=== PATIENT | male | born 1990 | race Two or more races ===

== ENCOUNTER 2018-04-18 05:38 | Inpatient (IN) | payer MEDICAID, OTHER ==
[2018-04-18] MEDS ORDERED: PROMETHAZINE HCL 25 MG/ML INJ IVP ONE ×2 (05:45→06:56)
[2018-04-18] MEDS ORDERED: NS 1,000 ML IV ONE ×2 (05:45)
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
[2018-04-18 05:54] LABS: PLATELET COUNT 359 10^3/uL (150-400)
[2018-04-18 06:02] LABS: INR 1.04 (0.83-1.16); PROTIME(PATIENT) 13.8 SEC (12.0-15.0)
[2018-04-18] MEDS ORDERED: ONDANSETRON 4 MG/2 ML VIAL IVP ONE (06:03)
[2018-04-18] MEDS ORDERED: PROMETHAZINE HCL 25 MG/ML INJ ONE (06:49)
[2018-04-18] MEDS ORDERED: LORazepam 2 MG/ML INJ IVP ONE (07:42)
[2018-04-18] MEDS ORDERED: ONDANSETRON DISINTEGRATING 4 MG TAB PO PRN (10:21)
[2018-04-18] MEDS ORDERED: ACETAMINOPHEN 325 MG TAB PO PRN (10:21)
[2018-04-18] MEDS ORDERED: PROMETHAZINE HCL 25 MG TAB PO PRN (10:25)
[2018-04-18] MEDS ORDERED: oxyCODONE IR 15 MG TAB PO PRN (10:25)
[2018-04-18] MEDS: PROMETHAZINE HCL 25 MG/ML INJ IVP PRN ×3 (11:26→23:11)
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
[2018-04-18] MEDS: HYDROmorphONE/DILAUDID 1 MG/ML INJ IVP PRN ×3 (11:27→23:09)
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
[2018-04-18] MEDS: ONDANSETRON 4 MG/2 ML VIAL IVP PRN ×2 (14:05→19:54)
[2018-04-18] MEDS: NS 1,000 ML IV SCH (14:06)
[2018-04-18] MEDS: NILOTINIB HCL 150 MG PO SCH (23:02)
[2018-04-19] MEDS: ONDANSETRON 4 MG/2 ML VIAL IVP PRN ×4 (00:54→20:43)
[2018-04-19] MEDS: LORazepam 2 MG/ML INJ IVP PRN ×2 (02:55→22:49)
[2018-04-19 05:32] LABS: PLATELET COUNT 270 10^3/uL (150-400)
[2018-04-19] MEDS: ENOXAPARIN 40 MG/0.4 ML SYR SC SCH (08:49)
[2018-04-19] MEDS: HYDROmorphONE/DILAUDID 1 MG/ML INJ IVP PRN ×3 (08:49→19:37)
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
[2018-04-19] MEDS: NS 1,000 ML IV SCH (11:54)
[2018-04-19] MEDS ORDERED: IOPAMIDOL (ISOVUE-300) 100 ML BTL ONE (11:54)
[2018-04-19] MEDS: PROMETHAZINE HCL 25 MG/ML INJ IVP PRN ×2 (11:55→19:29)
--- NOTE | 2018-04-19 12:09 | PDMN ---
Medical Necessity Medical necessity: change to IP; los>2mn for abd pain, and N/V w/poor oral intake; requires IV and oral pain control, IVF, and further imaging; comorbid CML, hx appendiceal carcinoid; per order and progress note 04/19/18
[2018-04-19] MEDS: NILOTINIB HCL 150 MG PO SCH ×2 (13:35→21:30)
[2018-04-20] MEDS: HYDROmorphONE/DILAUDID 1 MG/ML INJ IVP PRN ×2 (01:01→05:31)
[2018-04-20] MEDS: ONDANSETRON 4 MG/2 ML VIAL IVP PRN ×2 (01:02→09:25)
[2018-04-20] MEDS: PROMETHAZINE HCL 25 MG/ML INJ IVP PRN (04:14)
[2018-04-20] MEDS: LORazepam 2 MG/ML INJ IVP PRN (06:34)
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
[2018-04-20] MEDS: ENOXAPARIN 40 MG/0.4 ML SYR SC SCH (11:16)
[2018-04-20] MEDS: NILOTINIB HCL 150 MG PO SCH (11:16)
[2018-04-20 11:18] VITALS: BP 124/76
--- NOTE | 2018-04-20 13:44 | GDS ---
[f rep st] DISCHARGE SUMMARY [facility] DEPARTURE: 04/20/2018 FINAL DIAGNOSES: 1. Inability to tolerate p.o., nausea, vomiting, abdominal pain. 2. Chronic myeloid leukemia, on Tasigna. 3. History of appendiceal carcinoid. 4. Chronic pain, on continuous narcotics. HOSPITAL COURSE: 27-year-old man presents with abdominal pain, [id number], as well as inabilit y to tolerate p.o. He was treated conservatively with pain medications, IV fluids, antiemetics. CT scan of his abdomen showed postsurgical changes, though nothing acute to account for his persistent n ausea, vomiting, and abdominal pain. I consulted GI who had planned to do an endoscopy. He somewhat urgently felt as though he needed to leave [facility] so he could get to his job, as well as be baptized to day. He has some cognitive issues; however, he does have capacity to make this decision and understo od the risks and benefits of this. I discussed this personally with him and recommended him staying. He has elected to leave [facility] regardless. We will have Case Management attempt to give him any resou rces as possible. /[id number]/MODL
--- NOTE | 2018-04-20 18:01 | ASMTLACE ---
RUDOLPHE Length of stay for Answers: 1 day current admission Acuity / Level of Answers: No Care: Did the patient have an inpatient admission? Comorbidities - select Answers: Any tumor (including all that apply lymphoma or leukemia) Opioid dependence / Chronic pain # of Emergency department Answers: 0 visits in the last 6 months Social determinants Answers: History of substance abuse (ETOH, street drugs, prescription drugs, etc.) Homelessness (street, half-way) Lack of community resources and/or lack of social support (no pcp, lives alone, transportation, hermes d) Score: 17 Date Signed: 04/20/2018 06:00 PM Electronically Signed By:Alyson Lopez RN
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
== END 2018-04-20 13:42 | disposition left against medical advice (07) | DRG 251 ==
LOC: EDUNIT# → F1N 09:47 → OBSVTOIN 04-19 11:00
PROVIDERS: ADMIT Student in an Organized Health Care Education/Training Program; ATTEND Student in an Organized Health Care Education/Training Program
DX: R10.84 Generalized abdominal pain (principal); C92.Z0 Other myeloid leukemia not having achieved remission; R11.2 Nausea with vomiting, unspecified; G89.29 Other chronic pain; Z59.0 Homelessness; Z85.038 Personal history of other malignant neoplasm of large intestine; Z87.828 Personal history of other (healed) physical injury and trauma
CPT/HCPCS: 80305; 96374; G0378; J1170; J1200; J1650; J2060; J2405; J2550; Q9967